=== PATIENT | female | born 1935 | race Asian ===

== ENCOUNTER 2017-03-03 10:08 | Inpatient (IN) | payer MEDICARE ==
[~2017-03-03] VITALS: Ht 147.3 cm; Wt 67.1 kg
--- NOTE | 2017-03-03 10:08 | NUR ---
BIB RA 87 FROM HOME, NAUSEA/VOMITING AND DIARRHEA SINCE MIDNIGHT LAST NIGHT ASKING FOR PAIN SHOT AT THIS TIME.
[2017-03-03] MEDS ORDERED: AMLO2.5T PO (10:22)
[2017-03-03] MEDS ORDERED: UNK INSULIN (10:22)
[2017-03-03] MEDS ORDERED: ONDANSETRON HCL/PF 4 MG/2 ML VIAL IVP ONE (10:30)
[2017-03-03] MEDS ORDERED: IV NS 0.9% 1,000 ML BAG IV ONE ×3 (10:30→14:30)
[2017-03-03 10:33] LABS: EOSINOPHILS # (AUTO) 0.1 /CMM (0.0-0.7); EOSINOPHILS % (AUTO) 0.2 % (0.0-6.0); HEMATOCRIT 44 % (33-45); HEMOGLOBIN 14.4 g/dL (11.5-14.8); LYMPHOCYTES # (AUTO) 0.2 /CMM (0.8-4.8); LYMPHOCYTES % (AUTO) 0.8 % (20.0-44.0); MEAN CORPUSCULAR HEMOGLOBIN 30 PG (26.0-33.0); MEAN CORPUSCULAR HGB CONC 33 g/dl (31.0-36.0); MEAN CORPUSCULAR VOLUME 92 fL (82-100); MONOCYTES # (AUTO) 0.4 /CMM (0.1-1.30); MONOCYTES % (AUTO) 1.2 % (2.0-12.0); NEUTROPHILS # (AUTO) 29.9 /CMM (1.8-8.9); NEUTROPHILS % (AUTO) 97.8 % (43.0-81.0); PLATELET COUNT (AUTO) 178 /CMM (150-450); RDW COEFFICIENT OF VARIATION 13.9 (11.5-15.0); RED BLOOD CELL COUNT(AUTO) 4.77 MIL/uL (4.0-5.2)
[2017-03-03 10:44] LABS: WHITE BLOOD COUNT (AUTO) 30.5 K/uL (4.3-11.0)
[2017-03-03 10:47] LABS: CALCIUM, SERUM 9.3 mg/dL (8.5-10.1); CARBON DIOXIDE 17 mmol/L (21-32); CHLORIDE 105 mmol/L (98-107); CREATININE 2.3 mg/dL (0.6-1.3); GLUCOSE 299 mg/dL (74-106); POTASSIUM 3.8 mmol/L (3.5-5.1); SODIUM SERUM 141 mmol/L (136-145); UREA NITROGEN, BLOOD 32 mg/dL (7-18)
[2017-03-03 10:49] LABS: INR 0.99 (0.87-1.13); PROTHROMBIN TIME 10.3 SECS (9.5-12.7)
[2017-03-03 10:53] LABS: BAND % (MANUAL) 33 % (0.0-5.0); LYMPHOCYTES % (MANUAL) 2 % (16-48); MONOCYTES % (MANUAL) 1 % (0-11.0); NEUTROPHILS % (MANUAL) 64 (42-76)
[2017-03-03 10:54] LABS: TROPONIN I < 0.017 ng/mL (0.00-0.056)
[2017-03-03 10:58] LABS: ALANINE AMINOTRANSFERASE 20 U/L (12-78); ALBUMIN 3.6 g/dL (3.4-5.0); ALKALINE PHOSPHATASE 91 U/L (46-116); ASPARTATE AMINOTRANSFERASE 27 U/L (15-37); BILIRUBIN,DIRECT 0.1 mg/dL (0.0-0.2); BILIRUBIN,TOTAL 0.3 mg/dL (0.2-1.0); LIPASE 168 U/L (73-393); TOTAL PROTEIN, SERUM 7.7 g/dL (6.4-8.2)
[2017-03-03] MEDS ORDERED: INSU100V27 SQ (11:03)
[2017-03-03] MEDS ORDERED: AMLO-506 PO (11:03)
[2017-03-03] MEDS ORDERED: OMEP40CA37 PO (11:03)
[2017-03-03] MEDS ORDERED: ZOLP5TAB2 PO (11:03)
[2017-03-03] MEDS ORDERED: INSU3INS6 SQ (11:03)
--- NOTE | 2017-03-03 11:04 | NUR ---
PT TAKEN TO CT
[2017-03-03] MEDS ORDERED: ONDANSETRON HCL/PF 4 MG/2 ML VIAL ONE (11:29)
--- NOTE | 2017-03-03 11:53 | NUR ---
PATIENT ASSIGNED TO TELE 116-2
--- NOTE | 2017-03-03 12:40 | NUR ---
GAVE REPORT TO GOKUL NAPIER TELE ROOM 116-[address] ANTHONY FOSTER ADMITTING
[2017-03-03 12:58] LABS: APPEARANCE,URINE Turbid (CLEAR); BILIRUBIN,URINE Negative (NEGATIVE); BLOOD, URINE Moderate Ery/uL (NEGATIVE); COLOR,URINE Yellow (YELLOW); KETONES,URINE Negative (NEGATIVE); LEUKOCYTE ESTERASE ,URINE Small (NEGATIVE); NITRITE, URINE Negative (NEGATIVE); PROTEIN,URINE >=300 mg/dl (NEGATIVE); UGLUCOSE 100 MG/DL mg/dL (NEGATIVE); UROBILINOGEN,URINE 0.2 EU/dL (0.2)
--- NOTE | 2017-03-03 13:08 | NUR ---
PAGERicky FOSTER WHO IS ADVERTISING OPERATIONS COORDINATOR FOR PANEL.
[2017-03-03 13:13] LABS: BACTERIA,URINE Moderate /HPF (None Seen); WBC,URINE 51-80 /HPF (0-3)
[2017-03-03 13:14] LABS: SQUAMOUS EPITHELIAL CELL,UR Few /HPF (None Seen)
--- NOTE | 2017-03-03 13:25 | NUR ---
REPAGED ANTHONY FOSTER
[2017-03-03] MEDS ORDERED: CEFTRIAXONE 1GM BAG (ER ONLY) 50 ML IV ONE ×2 (13:30→14:02)
[2017-03-03 15:00] VITALS: BP 96/56
[2017-03-03] MEDS ORDERED: Z GUARD REMEDY 2 OZ OINT TP PRN (15:00)
[2017-03-03] MEDS ORDERED: FEE PK DOSING 1 MIN EA MC ONE (15:17)
--- NOTE | 2017-03-03 15:20 | NUR ---
RN NOTES PT NO IV ACCESS AT THIS TIME, PER REPORT OK TO USE PORTACATH SINCE PT IS HARDSTICK.
[2017-03-03] MEDS ORDERED: VANCOMYCIN 1 GM in IV D5W 250 ML IV ONE (15:30)
--- NOTE | 2017-03-03 15:30 | NUR ---
RN NOTES ADMITTED AN 82Y/O F FROM ER WITH DX OF UTI, TRANPOSRTED VIA STRETCHER ACCOMPANIED BY RN AND TECH. DAUGHTER IN LAW AT BEDSIDE. PT IS ALERT ORIENTED TO IMMEDIATE NEEDS. TELEBOX ATTACHED. VS TAKEN AND RECORDED. BODY CHECK DONE. NOTED SACRAL AND ABDOMINAL REDNESS. ABDOMINAL SCAR NOTED FROM PAST SURGERY. DENIES PAIN AT THIS TIME. ORIENTED TO UNIT AND CALL LIGHT USE, SAFETY MAINTAINED, CALL LIGHT WITHIN REACH WILL CONT TO MONITOR.
[2017-03-03 16:00] VITALS: BP 98/47
--- NOTE | 2017-03-03 16:10 | NUR ---
RN NOTES DR FOSTER AT BEDSIDE, PT WAS SEEN AND EVALUATED. SPOKE WITH DAUGHTER IN LAW REGARDING CARE. PER MD PT NEEDS TO BE ON CONTACT ISOLATION FOR C DIFF. WILL OBTAIN STOOL SAMPLE WHEN POSITIVE BM.
[2017-03-03] MEDS: ENOXAPARIN SODIUM 30 MG/0.3 ML DISP.SYRIN SQ SCH (16:22)
--- NOTE | 2017-03-03 17:25 | NUR ---
RN NOTES LACTIC ACID 4.4, DR FOSTER NOTIFIED
[2017-03-03] MEDS: IV NS 0.9% 1,000 ML IV PRN (17:35)
[2017-03-03] MEDS: VANCOMYCIN HCL 125 MG/2.5 ML ORAL.SUSP PO SCH ×2 (17:50→23:53)
[2017-03-03] MEDS: INSULIN ASPART HUMALOG/NOVOLOG 100 UNIT/ML CARTRIDGE SQ SCH (17:50)
--- NOTE | 2017-03-03 18:04 | NUR ---
RN NOTES INCONTINENT CARE PROVIDED. NO BM NOTED AT THIS TIME. WILL CONT TO ENDORSE TO COLLECT STOOL FOR C DIFF
[2017-03-03] MEDS: MEROPENEM 1 G in IV NS 0.9% 100 ML IV SCH (18:12)
--- NOTE | 2017-03-03 19:15 | NUR ---
RN INITIAL NOTES RECEIVED PATIENT IN BED, SLEEPING COMFORTABLY. PATIENT IS AROUSABLE WITH VERBAL AND TACTILE STIMULI. PATIENT IS LEGALLY BLIND, HARD OF HEARING. PATIENT IS ALERT AND ORIENTED X3. PATIENT DENIES ANY PAIN AND DISCOMFORT AT THIS TIME. NO DISTRESS. PATIENT IS ON ROOM AIR WITH EVEN AND UNLABORED BREATHING. SR ON TELE WITH HR OF 85. PATIENT WITH R HAND G22, INTACT AND PATENT. WITH R CHESTWALL PORTACATH, INTACT AND PATENT AND IVF RUNNING ORDERED. PATIENT'S NEEDS ANTICIPATED AND MET. REPOSITIONED FOR COMFORT. SAFETY AND COMFORT ENSURED. BED IN LOW AND LOCKED POSITION. CALL LIGHT IN REACH. WILL MONITOR.
[2017-03-03 20:00] VITALS: BP 116/55
[2017-03-03] MEDS: FAMOTIDINE (20 MG) 20 MG TABLET PO SCH (21:09)
[2017-03-03] MEDS: INSULIN DETEMIR 100 UNIT/ML CARTRIDGE SQ SCH (21:12)
[2017-03-03] MEDS: ACETAMINOPHEN 325 MG TABLET PO PRN (21:20)
[2017-03-04] VITALS: BP 103/45
[2017-03-04] MEDS: ZOLPIDEM TARTRATE 5 MG TABLET PO PRN ×2 (01:20→21:17)
[2017-03-04 04:00] VITALS: BP 102/64
[2017-03-04] MEDS ORDERED: MEROPENEM 1 G VIAL IV ONE (05:11)
[2017-03-04] MEDS: IV NS 0.9% 1,000 ML IV PRN ×2 (05:14→21:16)
[2017-03-04] MEDS: MEROPENEM 1 G in IV NS 0.9% 100 ML IV SCH ×2 (05:15→16:57)
[2017-03-04] MEDS: VANCOMYCIN HCL 125 MG/2.5 ML ORAL.SUSP PO SCH ×4 (05:16→23:40)
--- NOTE | 2017-03-04 05:25 | NUR ---
RN NOTES MERREM NOT LOCATED IN CASETTE OR REFRIGERATOR, MEDICATION OVERRIDE DONE, WILL ADMINISTER ORDERED
--- NOTE | 2017-03-04 06:29 | NUR ---
RN CLOSING NOTES PATIENT WITH NO ACUTE DISTRESS AND NO CHANGE IN CONDITION OBSERVED OVERNIGHT. PATIENT'S NEEDS ANTICIPATED AND MET. ALL DUE MEDS GIVEN ORDERED. PATIENT KEPT CLEAN AND DRY. SAFETY AND COMFORT ENSURED. BED IN LOW AND LOCKED POSITION. CALL LIGHT IN REACH. WILL ENDORSE ACCORDINGLY FOR CONTINUITY OF CARE.
--- NOTE | 2017-03-04 07:05 | NUR ---
RN INITIAL NOTE PATIENT RECEIVED IN BED RESTING. NO S/S OF PAIN OR DISCOMFORT. ABLE TO MAKE NEEDS KNOWN. SINUS RHYTHM ON TELE MONITOR. RESPIRATIONS ARE EVEN AND UNLABORED. NO S/S OF SOB OR RESPIRATORY DISTRESS. SATING WELL ON ROOM AIR. SKIN IS WARM AND DRY TO TOUCH. IV SITE FLUSHED, PATENT. SAFETY PRECAUTIONS IMPLEMENTED, BED IN LOCKED, LOW POSITION WITH TWO SIDE RAILS UP. CALL LIGHT AND BELONGINGS WITHIN EASY REACH. WILL CONTINUE TO MONITOR.
[2017-03-04 07:19] LABS: BASOPHILS % (AUTO) 0.1 % (0.0-2.0); EOSINOPHILS # (AUTO) 0.1 /CMM (0.0-0.7); EOSINOPHILS % (AUTO) 0.1 % (0.0-6.0); HEMATOCRIT 30 % (33-45); HEMOGLOBIN 10.1 g/dL (11.5-14.8); LYMPHOCYTES # (AUTO) 1.3 /CMM (0.8-4.8); LYMPHOCYTES % (AUTO) 2.8 % (20.0-44.0); MEAN CORPUSCULAR HEMOGLOBIN 31 PG (26.0-33.0); MEAN CORPUSCULAR HGB CONC 33 g/dl (31.0-36.0); MEAN CORPUSCULAR VOLUME 92 fL (82-100); MONOCYTES # (AUTO) 1.7 /CMM (0.1-1.30); MONOCYTES % (AUTO) 3.6 % (2.0-12.0); NEUTROPHILS # (AUTO) 45.1 /CMM (1.8-8.9); NEUTROPHILS % (AUTO) 93.4 % (43.0-81.0); PLATELET COUNT (AUTO) 144 /CMM (150-450); RDW COEFFICIENT OF VARIATION 14.3 (11.5-15.0); RED BLOOD CELL COUNT(AUTO) 3.31 MIL/uL (4.0-5.2)
[2017-03-04] MEDS: INSULIN ASPART HUMALOG/NOVOLOG 100 UNIT/ML CARTRIDGE SQ SCH ×3 (07:30→16:55)
[2017-03-04 07:45] LABS: WHITE BLOOD COUNT (AUTO) 48.3 K/uL (4.3-11.0)
[2017-03-04 07:51] LABS: ALANINE AMINOTRANSFERASE 17 U/L (12-78); ALBUMIN 2.4 g/dL (3.4-5.0); ALKALINE PHOSPHATASE 59 U/L (46-116); ASPARTATE AMINOTRANSFERASE 28 U/L (15-37); BILIRUBIN,TOTAL 0.1 mg/dL (0.2-1.0); CALCIUM, SERUM 6.9 mg/dL (8.5-10.1); CARBON DIOXIDE 21 mmol/L (21-32); CHLORIDE 113 mmol/L (98-107); CREATININE 1.4 mg/dL (0.6-1.3); GLUCOSE 51 mg/dL (74-106); MAGNESIUM 1.3 mg/dL (1.8-2.4); PHOSPHORUS 2.9 mg/dL (2.5-4.9); POTASSIUM 3.4 mmol/L (3.5-5.1); SODIUM SERUM 144 mmol/L (136-145); TOTAL PROTEIN, SERUM 5.8 g/dL (6.4-8.2); UREA NITROGEN, BLOOD 32 mg/dL (7-18)
[2017-03-04 07:55] LABS: CHOLESTEROL 126 mg/dL (<200); HDL CHOLESTEROL 35 mg/dL (40-60); LDL 72 mg/dL (0-99); TRIGLYCERIDES 125 mg/dL (30-150)
[2017-03-04 08:00] VITALS: BP 102/64
[2017-03-04 08:02] LABS: BAND % (MANUAL) 29 % (0.0-5.0); LYMPHOCYTES % (MANUAL) 2 % (16-48); MONOCYTES % (MANUAL) 3 % (0-11.0); NEUTROPHILS % (MANUAL) 66 (42-76)
[2017-03-04] MEDS: AMLODIPINE BESYLATE 10 MG TABLET PO SCH (08:02)
[2017-03-04] MEDS: FAMOTIDINE (20 MG) 20 MG TABLET PO SCH ×2 (08:37→21:17)
--- NOTE | 2017-03-04 09:42 | NUR ---
WOUND CARE CONSULT: PT PRESENTS WITH DEEP TISSUE INJURY INTACT TO SACRUM, PRESENT ON ADMISSION. PT NOTED TO BE INCONTINENT OF LOOSE STOOL. RECOMMENDATIONS MADE FOR SKIN PROTECTION AND DISCUSSED WITH NURSING STAFF. PT TO BE TURNED AND REPOSITIONED EVERY 2 HRS PT CONDITION PERMITS, HEELS FLOATED. WILL SEE PRN. POWELL IN AGREEMENT WITH PLAN OF CARE. Addendum: 03/04/17 at 0946 by POPPY KENNEDY Amended: Links added. Addendum: 03/04/17 at 1032 by POPPY REDU SHANNON ISOFLEX LOW AIRLOSS BED TO BE PLACED WHEN AVAILABLE. DISCUSSED WITH NURSING STAFF.
--- NOTE | 2017-03-04 11:00 | NUR ---
RN NOTE PATIENT HAD LOW BLOOD GLUCOSE, 45. RECHECKED AFTER EATING, PATIENT WAS STILL LOW. GAVE 50ML [id number]. REPEATED GLUCOSE. WITHIN NORMAL RANGE
[2017-03-04] MEDS ORDERED: POTASSIUM CHLORIDE 20 MEQ TAB.PRT.SR PO SCH (11:30)
[2017-03-04] MEDS: Magnesium 1GM/D5W 100ML PREMIX 100 ML IV SCH ×4 (11:45→15:21)
[2017-03-04] MEDS ORDERED: DEXTROSE 50%-WATER 50 ML DISP.SYRIN IVP ONE (12:00)
[2017-03-04] MEDS: ENOXAPARIN SODIUM 30 MG/0.3 ML DISP.SYRIN SQ SCH (14:13)
[2017-03-04 16:00] VITALS: BP 145/65
[2017-03-04] MEDS ORDERED: VANCOMYCIN 0.75 GM in IV D5W 250 ML IV SCH (16:00)
[2017-03-04] MEDS: BLOOD SUGAR DIAGNOSTIC 1 EACH STRIP IN SCH ×2 (16:57→21:24)
[2017-03-04] MEDS: ACETAMINOPHEN 325 MG TABLET PO PRN ×2 (18:05→23:55)
--- NOTE | 2017-03-04 19:10 | NUR ---
RN CLOSING NOTE CARRIED OUT ALL MD ORDERS, ANTICIPATED PATIENTS NEEDS. KEPT PATIENT CLEAN AND DRY. SAFETY PRECAUTIONS IN PLACE AT ALL TIMES. ISOLATION PRECAUTIONS OBSERVED ALWAYS. WILL GIVE REPORT TO PM RN FOR KENZIE
--- NOTE | 2017-03-04 19:30 | NUR ---
RN INITIAL NOTES RECEIVED PATIENT AWAKE A/OX3, LEGALLY BLIND. DENIES PAIN OR DISCOMFORT AT THIS TIME. DENIES SOB, ON RA. SKIN WARM AND DRY TO TOUCH. WITH RCW PORT-A-CATH IN PLACE WITH IVF RUNNING. ISOLATION PRECAUTIONS OBSERVED. HOB ELEVATED. TURNED AND REPOSITIONED. SIDE RAILS UP AND LOCKED. BED KEPT AT LOWEST POSITION. CALL LIGHT KEPT WITHIN EASY REACH. WILL CONTINUE TO MONITOR.
[2017-03-04 20:00] VITALS: BP 132/55
[2017-03-04] MEDS: METRONIDAZOLE 500 MG TABLET PO SCH (21:17)
[2017-03-04] MEDS: INSULIN DETEMIR 100 UNIT/ML CARTRIDGE SQ SCH (21:29)
[2017-03-05 04:00] VITALS: BP 120/69
[2017-03-05] MEDS: VANCOMYCIN HCL 125 MG/2.5 ML ORAL.SUSP PO SCH ×4 (05:25→23:54)
[2017-03-05] MEDS: MEROPENEM 1 G in IV NS 0.9% 100 ML IV SCH ×2 (05:25→16:49)
[2017-03-05] MEDS: METRONIDAZOLE 500 MG TABLET PO SCH ×3 (05:25→21:09)
--- NOTE | 2017-03-05 05:50 | NUR ---
SPOKE WITH SIGNIFICANT OTHER DYLAN, UPDATED ON PATIENTS CONDITION. PER DYLAN HE WOULD LIKE TO KEEP PATIENT ON BIPAP. WILL CONTINUE TO MONITOR. Addendum: 03/05/17 at 0717 by JOSSELIN ALBARRAN RN DELETE NOTE. WRONG PATIENT.
[2017-03-05 06:39] LABS: EOSINOPHILS # (AUTO) 0.2 /CMM (0.0-0.7); EOSINOPHILS % (AUTO) 0.5 % (0.0-6.0); HEMATOCRIT 34 % (33-45); HEMOGLOBIN 11.2 g/dL (11.5-14.8); LYMPHOCYTES % (AUTO) 4.5 % (20.0-44.0); MEAN CORPUSCULAR HEMOGLOBIN 30 PG (26.0-33.0); MEAN CORPUSCULAR HGB CONC 33 g/dl (31.0-36.0); MEAN CORPUSCULAR VOLUME 91 fL (82-100); MONOCYTES # (AUTO) 0.6 /CMM (0.1-1.30); MONOCYTES % (AUTO) 1.2 % (2.0-12.0); NEUTROPHILS # (AUTO) 42.9 /CMM (1.8-8.9); NEUTROPHILS % (AUTO) 93.8 % (43.0-81.0); PLATELET COUNT (AUTO) 156 /CMM (150-450); RDW COEFFICIENT OF VARIATION 14.1 (11.5-15.0); RED BLOOD CELL COUNT(AUTO) 3.72 MIL/uL (4.0-5.2)
[2017-03-05 06:59] LABS: CALCIUM, SERUM 7.3 mg/dL (8.5-10.1); CARBON DIOXIDE 24 mmol/L (21-32); CHLORIDE 109 mmol/L (98-107); CREATININE 0.7 mg/dL (0.6-1.3); GLUCOSE 85 mg/dL (74-106); MAGNESIUM 2.4 mg/dL (1.8-2.4); PHOSPHORUS 1.7 mg/dL (2.5-4.9); POTASSIUM 3.1 mmol/L (3.5-5.1); SODIUM SERUM 142 mmol/L (136-145); UREA NITROGEN, BLOOD 13 mg/dL (7-18)
[2017-03-05 07:09] LABS: WHITE BLOOD COUNT (AUTO) 45.7 K/uL (4.3-11.0)
--- NOTE | 2017-03-05 07:21 | NUR ---
MS RN CLOSING NOTES NO SIGNIFICANT CHANGES OVERNIGHT. PATIENT STILL WITH DIARRHEA. NO PAIN OR DISCOMFORT AT THIS TIME. RESPIRATIONS EVEN AND UNLABORED, ON RA. ALL NEEDS ANTICIPATED AND MET. ISOLATION PRECAUTIONS OBSERVED. KEPT CLEAN AND DRY. TURNED AND REPOSITIONED Q2 AND PRN. Z GUARD APPLIED NEEDED. IVF RUNNING. SIDE RAILS UP AND LOCKED. BED KEPT AT LOWEST POSITION. CALL LIGHT KEPT WITHIN EASY REACH. RECEIVED CRITICAL FROM LAB WBC 45.7, DECREASED FROM PREVIOUS 48.3. PATIENT ON ABX. WILL ENDORSE CONTINUITY OF CARE TO AM NURSE.
[2017-03-05] MEDS: BLOOD SUGAR DIAGNOSTIC 1 EACH STRIP IN SCH ×4 (07:30→21:09)
[2017-03-05 08:39] LABS: BAND % (MANUAL) 1 % (0.0-5.0); LYMPHOCYTES % (MANUAL) 12 % (16-48); MONOCYTES % (MANUAL) 2 % (0-11.0); NEUTROPHILS % (MANUAL) 85 (42-76)
[2017-03-05] MEDS: INSULIN ASPART HUMALOG/NOVOLOG 100 UNIT/ML CARTRIDGE SQ SCH ×3 (09:59→17:03)
[2017-03-05] MEDS: FAMOTIDINE (20 MG) 20 MG TABLET PO SCH ×2 (10:00→21:09)
[2017-03-05] MEDS: AMLODIPINE BESYLATE 10 MG TABLET PO SCH (10:00)
[2017-03-05] MEDS: POTASSIUM CHLORIDE 20 MEQ TAB.PRT.SR PO SCH ×2 (10:25→11:34)
[2017-03-05 12:00] VITALS: BP 118/65
[2017-03-05] MEDS ORDERED: NEUTRA PHOS 1 POWD.PACKET PO ONE (16:00)
[2017-03-05] MEDS: ENOXAPARIN SODIUM 30 MG/0.3 ML DISP.SYRIN SQ SCH (16:50)
--- NOTE | 2017-03-05 19:05 | NUR ---
RN OPENING NOTES RECEIVED REPORT FROM AM RN. PATIENT A/A/O X3, ABLE TO MAKE NEEDS KNOWN. BREATHING EVEN & UNLABORED, ON ROOM AIR. DENIES SOB OR DIFFICULTY BREATHING. PULSES PRESENT. RIGHT CHEST WALL PORT-A-CATH PATENT W/ DRESSING CDI & IVF NS @ 100 ML/HR. RIGHT HAND IV #22 PATENT W/ DRESSING CDI, ON SALINE LOCK. DENIES ANY PAIN OR DISCOMFORT @ THIS TIME. SAFETY MEASURES IN PLACE W/ SIDE RAILS UP, BED LOCKED IN LOWEST POSITION & CALL LIGHT WITHIN REACH.
[2017-03-05 20:00] VITALS: BP 98/60
[2017-03-05] MEDS: ACETAMINOPHEN 325 MG TABLET PO PRN (21:09)
[2017-03-05] MEDS: INSULIN DETEMIR 100 UNIT/ML CARTRIDGE SQ SCH (21:20)
[2017-03-05] MEDS: ZOLPIDEM TARTRATE 5 MG TABLET PO PRN (23:54)
[2017-03-06] MEDS: IV NS 0.9% 1,000 ML IV PRN ×2 (00:01→14:47)
[2017-03-06 04:00] VITALS: BP 142/66
[2017-03-06] MEDS: METRONIDAZOLE 500 MG TABLET PO SCH ×3 (05:33→21:23)
[2017-03-06] MEDS: VANCOMYCIN HCL 125 MG/2.5 ML ORAL.SUSP PO SCH ×3 (05:33→18:57)
[2017-03-06] MEDS: MEROPENEM 1 G in IV NS 0.9% 100 ML IV SCH ×2 (05:33→16:28)
[2017-03-06 06:21] LABS: EOSINOPHILS # (AUTO) 0.2 /CMM (0.0-0.7); EOSINOPHILS % (AUTO) 0.8 % (0.0-6.0); HEMATOCRIT 35 % (33-45); HEMOGLOBIN 11.5 g/dL (11.5-14.8); LYMPHOCYTES # (AUTO) 2.7 /CMM (0.8-4.8); MEAN CORPUSCULAR HEMOGLOBIN 31 PG (26.0-33.0); MEAN CORPUSCULAR HGB CONC 33 g/dl (31.0-36.0); MEAN CORPUSCULAR VOLUME 91 fL (82-100); MONOCYTES # (AUTO) 0.5 /CMM (0.1-1.30); MONOCYTES % (AUTO) 1.9 % (2.0-12.0); NEUTROPHILS # (AUTO) 21.3 /CMM (1.8-8.9); NEUTROPHILS % (AUTO) 86.3 % (43.0-81.0); PLATELET COUNT (AUTO) 176 /CMM (150-450); RDW COEFFICIENT OF VARIATION 14.2 (11.5-15.0); RED BLOOD CELL COUNT(AUTO) 3.77 MIL/uL (4.0-5.2); WHITE BLOOD COUNT (AUTO) 24.6 K/uL (4.3-11.0)
[2017-03-06 06:45] LABS: CALCIUM, SERUM 7.2 mg/dL (8.5-10.1); CARBON DIOXIDE 25 mmol/L (21-32); CHLORIDE 108 mmol/L (98-107); CREATININE 0.6 mg/dL (0.6-1.3); GLUCOSE 129 mg/dL (74-106); MAGNESIUM 1.9 mg/dL (1.8-2.4); PHOSPHORUS 1.8 mg/dL (2.5-4.9); POTASSIUM 3.8 mmol/L (3.5-5.1); SODIUM SERUM 140 mmol/L (136-145); UREA NITROGEN, BLOOD 8 mg/dL (7-18)
--- NOTE | 2017-03-06 07:15 | NUR ---
MS RN OPENING RECEIVED PATIENT A/OX3 LEGALLY BLIND. DENIES SOB, DIFFICULTY BREATHING OR PAIN AT THIS TIME. ALL NEEDS IN REACH, IN POSITION OF COMFORT. BED LOWERED AND LOCKED, RAILS UPX3 FOR SAFETY AND WILL ROUND Q2H OR LESS PER NEEDS.
[2017-03-06 08:00] VITALS: BP 146/60
[2017-03-06] MEDS: BLOOD SUGAR DIAGNOSTIC 1 EACH STRIP IN SCH ×4 (08:22→21:25)
[2017-03-06] MEDS: FAMOTIDINE (20 MG) 20 MG TABLET PO SCH ×2 (08:24→21:23)
[2017-03-06] MEDS: AMLODIPINE BESYLATE 10 MG TABLET PO SCH (08:26)
[2017-03-06] MEDS: INSULIN ASPART HUMALOG/NOVOLOG 100 UNIT/ML CARTRIDGE SQ SCH ×3 (08:29→16:36)
[2017-03-06 09:33] LABS: BAND % (MANUAL) 5 % (0.0-5.0); LYMPHOCYTES % (MANUAL) 8 % (16-48); MONOCYTES % (MANUAL) 3 % (0-11.0); NEUTROPHILS % (MANUAL) 84 (42-76)
[2017-03-06] MEDS: ONDANSETRON HCL/PF 4 MG/2 ML VIAL IVP PRN (14:59)
--- NOTE | 2017-03-06 15:01 | NUR ---
ms rn notes PATIENT C/O NAUSEA, PER REQUEST PRN ZOFRAN GIVEN ORDERED
[2017-03-06] MEDS: ENOXAPARIN SODIUM 30 MG/0.3 ML DISP.SYRIN SQ SCH (15:10)
[2017-03-06 16:00] VITALS: BP 134/62
[2017-03-06] MEDS: predniSONE 20 MG TABLET PO SCH (16:27)
[2017-03-06] MEDS: ACETAMINOPHEN 325 MG TABLET PO PRN (16:34)
--- NOTE | 2017-03-06 17:20 | NUR ---
MS RN NOTES CALLED LAB IN RE TO LOW PHOS REPLACEMENT
--- NOTE | 2017-03-06 18:38 | NUR ---
MS RN CLOSING PATIENT STABLE NO COMPLICATIONS NO CHANGES. ALL DUE MEDS GIVEN AND ALL NEEDS MET. ALL NEEDS IN REACH, PATIENT TURNED AND REPOSITIONED Q2H. BED LOWERED AND LOCKED, RAILS UPX3 FOR SAFETY AND BED ALARM ON. CARE WILL BE ENDORSED TO RN FOR KENZIE
[2017-03-06] MEDS ORDERED: NEUTRA PHOS 1 POWD.PACKET PO ONE (19:00)
[2017-03-06 20:00] VITALS: BP 140/59
[2017-03-06] MEDS: ZOLPIDEM TARTRATE 5 MG TABLET PO PRN (21:23)
[2017-03-06] MEDS: INSULIN DETEMIR 100 UNIT/ML CARTRIDGE SQ SCH (21:25)
[2017-03-07] MEDS: IV NS 0.9% 1,000 ML IV PRN (00:38)
[2017-03-07] MEDS: VANCOMYCIN HCL 125 MG/2.5 ML ORAL.SUSP PO SCH ×4 (00:38→18:00)
[2017-03-07] MEDS: ACETAMINOPHEN 325 MG TABLET PO PRN (00:45)
[2017-03-07 04:00] VITALS: BP 143/70
[2017-03-07] MEDS: MEROPENEM 1 G in IV NS 0.9% 100 ML IV SCH ×2 (05:53→17:51)
[2017-03-07] MEDS: METRONIDAZOLE 500 MG TABLET PO SCH ×2 (05:54→13:07)
--- NOTE | 2017-03-07 06:29 | NUR ---
END OF SHIFT SUMMERY: PT IS A&O X 4. IN A STABLE CONDITION, DENIES PAIN. NO EPISODES OF N/V.NO ACUTE RESPIRATORY/CARDIAC DISTRESS NOTED. WILL CONTINUE TO MONITOR AND ENDORSE PATIENT TO NEXT NURSE TO CONTINUE THE CARE.
[2017-03-07 06:32] LABS: BASOPHILS % (AUTO) 0.2 % (0.0-2.0); HEMATOCRIT 37 % (33-45); HEMOGLOBIN 12.4 g/dL (11.5-14.8); LYMPHOCYTES # (AUTO) 2.4 /CMM (0.8-4.8); LYMPHOCYTES % (AUTO) 20.6 % (20.0-44.0); MEAN CORPUSCULAR HEMOGLOBIN 30 PG (26.0-33.0); MEAN CORPUSCULAR HGB CONC 34 g/dl (31.0-36.0); MEAN CORPUSCULAR VOLUME 91 fL (82-100); MONOCYTES # (AUTO) 0.1 /CMM (0.1-1.30); NEUTROPHILS # (AUTO) 9.1 /CMM (1.8-8.9); NEUTROPHILS % (AUTO) 78.2 % (43.0-81.0); PLATELET COUNT (AUTO) 186 /CMM (150-450); RDW COEFFICIENT OF VARIATION 13.7 (11.5-15.0); RED BLOOD CELL COUNT(AUTO) 4.07 MIL/uL (4.0-5.2); WHITE BLOOD COUNT (AUTO) 11.7 K/uL (4.3-11.0)
[2017-03-07] MEDS: BLOOD SUGAR DIAGNOSTIC 1 EACH STRIP IN SCH ×3 (06:50→17:58)
[2017-03-07 06:58] LABS: CALCIUM, SERUM 7.6 mg/dL (8.5-10.1); CARBON DIOXIDE 24 mmol/L (21-32); CHLORIDE 108 mmol/L (98-107); CREATININE 0.7 mg/dL (0.6-1.3); GLUCOSE 265 mg/dL (74-106); MAGNESIUM 1.8 mg/dL (1.8-2.4); PHOSPHORUS 2.8 mg/dL (2.5-4.9); POTASSIUM 4.3 mmol/L (3.5-5.1); SODIUM SERUM 142 mmol/L (136-145); UREA NITROGEN, BLOOD 11 mg/dL (7-18)
[2017-03-07 08:00] VITALS: BP 158/69
--- NOTE | 2017-03-07 08:11 | NUR ---
RN OPENING NOTES RECEIVED PATIENT RESTING IN BED COMFORTABLY. EASILY AROUSABLE. AOX3. PATIENT IS BLIND BILATERALLY. NO COMPLAINTS OF PAIN, SOB AND CP. PATIENT COMPLAINING OF ITCHY DIAPER. WILL APPLY LOTION POSSIBLE INTERVENTION. SACRAL DTI. ISOLATION ESBL OF URINE. NO ACUTE DISTRESS NOTED. RESPIRATIONS EVEN AND UNLABORED. BED LOCKED IN THE LOWEST POSITION WITH SIDE RAILS UP X2. CALL LIGHT WITHIN REACH. WILL CONTINUE TO MONITOR, ASSESS AND EDUCATE PATIENT THROUGHOUT SHIFT.
[2017-03-07] MEDS: predniSONE 20 MG TABLET PO SCH (09:29)
[2017-03-07] MEDS: FAMOTIDINE (20 MG) 20 MG TABLET PO SCH (09:29)
[2017-03-07] MEDS: AMLODIPINE BESYLATE 10 MG TABLET PO SCH (09:33)
[2017-03-07] MEDS: INSULIN ASPART HUMALOG/NOVOLOG 100 UNIT/ML CARTRIDGE SQ SCH ×3 (09:36→17:59)
[2017-03-07] MEDS ORDERED: MERO1VIA IV (10:51)
[2017-03-07] MEDS ORDERED: PRED5TAB48 PO (11:31)
[2017-03-07] MEDS: ENOXAPARIN SODIUM 30 MG/0.3 ML DISP.SYRIN SQ SCH (15:21)
[2017-03-07] MEDS: ONDANSETRON HCL/PF 4 MG/2 ML VIAL IVP PRN (15:33)
[2017-03-07 16:00] VITALS: BP 139/52
[2017-03-07] MEDS ORDERED: ONDA4TAB5 PO (17:07)
[2017-03-07 20:00] VITALS: BP 147/70
--- NOTE | 2017-03-07 20:00 | NUR ---
RN CLOSING NOTES (DISCHARGE) PATIENT D/C'D HOME WITH FAMILY. PT IN STABLE CONDITION. ALL NEEDS MET. ALL MEDS GIVEN APPROPRIATE. NO COMPLAINTS OF PAIN OR NAUSEA. NO CP. ALL EXIT CARE EDUCATION DONE. ALL DISCHARGE EDUCATION COMPLETED. ALL DOCUMENTATION SIGNED AND PLACED IN CHART. PATIENT TO COMPLETE IV ABX MERREM WITH HOME HEALTH NURSE. ALL NEEDS MET. ALL MEDS GIVEN. PORT-A-CATH IN PLACE AND DRESSING CHANGED.
--- NOTE | 2017-03-07 20:44 | NUR ---
PT IS DISCHARGED TO HOME IN A STABLE CONDITION, ALERT,ORIENTED. VSS. DENIES PAIN . ESCORTED BY PATIENT'S DAUGHTER IN LAW garry Hebert.
[2017-03-08] MEDS ORDERED: predniSONE 20 MG TABLET PO SCH (09:00)
== END 2017-03-07 20:45 | disposition home health service (06) | DRG 871 ==
LOC: ER 10:10 → TELE1 12:13 → MEDSG1 03-04 10:15
PROVIDERS: ADMIT Nurse Practitioner Acute Care; ATTEND Nurse Practitioner Acute Care
DX: A41.9 Sepsis, unspecified organism (principal); N17.0 Acute kidney failure with tubular necrosis; E86.0 Dehydration; E88.09 Other disorders of plasma-protein metabolism, not elsewhere classified; N39.0 Urinary tract infection, site not specified; C34.90 Malignant neoplasm of unspecified part of unspecified bronchus or lung; I10 Essential (primary) hypertension; E11.9 Type 2 diabetes mellitus without complications; T45.8X5A Adverse effect of other primarily systemic and hematological agents, initial encounter; R65.20 Severe sepsis without septic shock; Y92.009 Unspecified place in unspecified non-institutional (private) residence as the place of occurrence of the external cause; H54.8 Legal blindness, as defined in USA; B96.89 Other specified bacterial agents as the cause of diseases classified elsewhere; Z79.899 Other long term (current) drug therapy; Z79.4 Long term (current) use of insulin; Z16.12 Extended spectrum beta lactamase (ESBL) resistance; R32 Unspecified urinary incontinence; Z87.440 Personal history of urinary (tract) infections
CPT/HCPCS: 36415; 71010-TC; 76856-TC; 80048-TC; 80053-TC; 80061-TC; 80076-TC; 80202-TC; 81000-TC; 82962-TC; 83605-TC; 83690-TC; 83735-TC; 84100-TC; 84443-TC; 84484-TC; 85025-TC; 85730-TC; 87040-TC; 87081-TC; 87086-TC; 87102-TC; 87186-TC; 93307-TC; 97116-TC; 97530-TC; A4606; J0696; J1650; J1815; J2185; J2405; J3370; J3475; J7030; J7060; Z7610